=== PATIENT | male | born 1955 | race Caucasian/White ===

== ENCOUNTER 2021-11-24 22:08 | Emergency (ER) | payer BC ==
[2021-11-24 23:13] LABS: HEMOGLOBIN 15.9 gm/dl (14.0-17.5); RED BLOOD COUNT 5.01 M/UL (4.20-5.50); WHITE BLOOD COUNT 12.9 K/UL (4.5-11.0)
[2021-11-24 23:59] LABS: BUN/CREATININE RATIO 17 (0-10)
[2021-11-25] MEDS ORDERED: ENDOCET 5-3251 EACH PO (00:24)
[2021-11-25] MEDS ORDERED: ONDANSETRON ODT4 MG SL (00:25)
[2021-11-25] MEDS ORDERED: FLOMAX 0.4 MG0.4 MG PO (00:25)
== END 2021-11-25 00:45 | disposition home or self-care (01) ==
LOC: ER1 22:08
PROVIDERS: Nurse Practitioner
DX: N13.2 Hydronephrosis with renal and ureteral calculous obstruction (principal); E78.5 Hyperlipidemia, unspecified; I10 Essential (primary) hypertension
CPT/HCPCS: 80048; 81001; 85025; 96374; 96375; 96376; 99284; J1885; J2270; J2405; J7030

== ENCOUNTER → 2022-03-10 | Outpatient (CLI) | payer BC ==
[~2022-03-10] MED LIST: ENDOCET 5-3251 EACH PO; FLOMAX 0.4 MG0.4 MG PO; ONDANSETRON ODT4 MG SL
== END ==
LOC: KOH-I 10:58
DX: Z87.891 Personal history of nicotine dependence (principal)
CPT/HCPCS: 71271